=== PATIENT | male | born 1960 | race Caucasian/White ===

== ENCOUNTER 2023-10-25 17:49 | Emergency (ER) | payer OTHER, SELFPAY ==
--- NOTE | ~2023-10-25 | XR_ITS ---
XR foot RT min 3V 10/25/2023 18:36 Indication: Right foot pain Procedure: 4 views right foot Comparison: No prior studies for comparison. Findings: No fracture, subluxation or dislocation. Lisfranc joint intact. No foreign bodies. No erosi ve changes. Mild osteoarthritis of the first MTP joint. There are small degenerative calcaneal enthes ophytes. 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 Reviewed, dictated and finalized at location A. 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
[2023-10-25 17:57] VITALS: BP 130/69; PULSE 92; RESP 16; TEMP 36.8; O2SAT 98
--- NOTE | 2023-10-25 18:23 | ED.GENADULT ---
HPI - General Adult General Chief complaint: Extremity Injury, Lower Stated complaint: Right foot injury Time Seen by Provider: 10/25/23 18:23 Source: patient, RN notes reviewed and old records reviewed Mode of arrival: ambulatory Limitations: no limitations History of Present Illness HPI narrative: 63 year male to [facility] Care with complaint of right foot pain for 2 days. Patient denies any known injury. Patient endorses that he is on his feet all day for work. Patient states that he wore 2 socks today to work and that the pressure helped alleviate pain. Patient has not taken any [id number] medications in attempt to treat discomfort. Patient denies history of injury to foot. Patient denies numbness, tingling. Related Data Home Medications Medication Instructions Recorded Confirmed No Home Medications 10/25/23 10/25/23 Allergies Allergy/AdvReac Type Severity Reaction Status Date / Time No Known Allergies Allergy Verified 10/25/23 18:05 Review of Systems Review of Systems: All systems reviewed & are unremarkable except as noted in HPI and below Constitutional: Constitutional: Reports no additional constitutional complaints Eyes: Eyes: Reports no additional eye complaints ENT: Reports system reviewed and no additional complaints, except as documented Cardiovascular: Cardiovascular: Reports no additional cardiovascular complaints, Denies chest pain and Denies dyspnea Respiratory: Respiratory: Reports no additional respiratory complaints, Denies cough and Denies dyspnea Musculoskeletal: Musculoskeletal: Reports arthralgias ( Foot right) Neurologic: Reports system reviewed and no additional complaints, except as documented Psychiatric: Psychiatric: Reports no additional psychiatric complaints PMFSH Comments At the time of my signature, I reviewed and agree with the nursing past medical, surgical, social, and family history. There is no relevant family history pertinent to the patient complaint. Exam Const: General: cooperative, healthy appearing, comfortable, no acute distress, alert and well nourished Nutritional Appearance: well nourished Orientation/consciousness: patient oriented x3 Limitations: no limitations HENMT: Head: normal to inspection Ears: external ears normal Face/Nose/Sinus: Normal external nose present, Normal nares present, normal facial exam, No erythema and No edema Face and sinus: normal facial exam, no erythema and no edema Mouth: Yes Normal oral and palatal mucosa present Eyes: General: appearance normal, both eyes and all related structures Neck: Neck: normal visual inspection, full ROM and no meningeal signs Lymphatic: no lymphadenopathy noted and no lymphedema noted Chest: Chest palpation & inspection: normal inspection of the chest Resp: Effort & Inspection: normal respiratory effort and able to speak in complete sentences Auscultation: clear to auscultation bilaterally Cardio: Jugular venous distension: no JVD Rate: regular rate Rhythm: regular rhythm Back/Spine/Pelvis: Cervical Spine: cervical ROM normal Skin: General skin exam: normal color, no rashes or lesions noted and turgor normal Neuro: General: patient oriented x3, gait normal, moves all extremities and no meningeal signs Speech: normal speech Gait exam (Neuro): Normal gait present Extrem: General: normal to inspection, full ROM and capillary refill normal Right lower extremity: foot Details: normal capillary refill, normal to inspection and tenderness Location: of the dorsal foot and of the great toe Location: at the MTP joint Psych: Appearance: grossly normal and well kempt Course Course Emergency Course: Some parts of this dictation were generated by voice recognition software and may contain typographical and/or grammatical inaccuracies. Level of Care: Express Care Visit Vital Signs Vital signs: Vital Signs Temperature 36.8 C 10/25/23 17:57 Pulse Rate 92 10/25/23 17:57
== END 2023-10-25 19:10 | disposition home or self-care (01) ==
PROVIDERS: Emergency Provider Nurse Practitioner Family; PCP Internal Medicine
DX: M19.071 Primary osteoarthritis, right ankle and foot (principal)
CPT/HCPCS: 73630; 99213; G0463

== ENCOUNTER 2024-07-05 13:18 | Emergency (ER) | payer MEDICAID, SELFPAY ==
[2024-07-05 13:51] VITALS: BP 148/83; PULSE 96; RESP 18; TEMP 38.1; O2SAT 98
--- NOTE | 2024-07-05 14:31 | ED.URI ---
HPI - URI/Sore Throat General Chief Complaint: Upper Respiratory Infection Stated Complaint: cold/sob/hurts to take deep breath Time Seen by Provider: 07/05/24 14:32 Source: patient, RN notes reviewed and old records reviewed Mode of arrival: ambulatory Limitations: no limitations History of Present Illness HPI Narrative: 64-year-old male presents to the [facility] with complaints of body aches, sore throat, shortness of breath with exertion and feeling feverish. Onset (ago): day(s) Treatments prior to arrival: cold medicine Related Data Allergies Allergy/AdvReac Type Severity Reaction Status Date / Time Penicillins Allergy RASH Verified 07/05/24 14:03 Review of Systems Review of Systems: All systems reviewed & are unremarkable except as noted in HPI and below Constitutional: Constitutional: Reports no additional constitutional complaints ENT: Reports system reviewed and no additional complaints, except as documented Cardiovascular: Cardiovascular: Reports no additional cardiovascular complaints, Denies chest pain and Denies dyspnea Respiratory: Respiratory: Reports no additional respiratory complaints, Denies chest congestion, Denies cough and Denies dyspnea Musculoskeletal: Musculoskeletal: Reports no additional musculoskeletal complaints Integumentary/Breasts: Skin/Breast: Reports system reviewed and no additional complaints, except as docu PMFSH Comments At the time of my signature, I reviewed and agree with the nursing past medical, surgical, social, and family history. There is no relevant family history pertinent to the patient complaint. Exam Const: General: cooperative, no acute distress, well developed, alert, tired appearing, uncomfortable and well nourished Nutritional Appearance: well nourished Orientation/consciousness: patient oriented x3 Limitations: no limitations HENMT: Head: normal to inspection Ears: hearing grossly normal bilaterally, external ears normal, TM's normal bilaterally, EAC's normal, mastoids normal and no periauricular adenopathy Face/Nose/Sinus: normal facial exam and face symmetric Face and sinus: normal facial exam and face symmetric Mouth: Yes Normal oral and palatal mucosa present, Yes lip normal, Yes tongue normal and Yes moist mucous membranes Throat: posterior oropharynx normal, uvula midline, postnasal drainage and no uvular edema Eyes: General: appearance normal, both eyes and all related structures Neck: Neck: normal visual inspection, full ROM, no lymphadenopathy and no meningeal signs Chest: Chest palpation & inspection: normal inspection of the chest Resp: Effort & Inspection: normal respiratory effort and able to speak in complete sentences Auscultation: clear to auscultation bilaterally, no crackles, no rales, no rhonchi and no wheezes Cardio: Rate: regular rate Skin: General skin exam: normal color and no rashes or lesions noted Neuro: General: patient oriented x3, gait normal, moves all extremities and no meningeal signs Cognition (Neuro): normal cognition Speech: normal speech Gait exam (Neuro): Normal gait present Extrem: General: normal to inspection, full ROM, capillary refill normal and normal gait Psych: Appearance: grossly normal and well kempt Mental Status: mental status grossly normal Speech and movement: Normal speech and movement present and Clear speech present Affect: normal affect Attitude: cooperative Course Course Level of Care: Express Care Visit Vital Signs Vital signs: Vital Signs Temperature 100.6 F H 07/05/24 13:51 Pulse Rate 96 07/05/24 13:51 Respiratory Rate 18 07/05/24 13:51 Blood Pressure 148/83 H 07/05/24 13:51 Pulse Oximetry 98 07/05/24 13:51 Oxygen Delivery Room Air 07/05/24 13:51 Temperature 100.6 F H 07/05/24 13:51 Pulse Rate 96 07/05/24 13:51 Respiratory Rate 18 07/05/24 13:51 Blood Pressure 148/83 H 07/05/24 13:51 Pulse Oximetry 98 07/05/24 13:51 Oxygen Delivery Room Air 07/05/24 13:51 Reviewed MDM - URI/Sore Throat MDM Narrative Medical decision making narrative: Patient sitting in exam room. Nontoxic Patient positive for COVID, states that he has taken paxlovid in the past and would like it today Discharge instructions reviewed with patient, as well as provided in writing per nursing staff. The instructions also include specific and strict return/GO TO THE ER as well as f/u information. All questions have been answered, and the patient deny any further questions with discharge and discharge plan. Some parts of this dictation were generated by voice recognition software and may contain typographical and/or grammatical inaccuracies. Differential Diagnosis Differential diagnosis: Likely upper respiratory infection, otitis media, sinusitis, viral infection and influenza Lab Data Labs: Lab Results 07/05/24 Range/Units 14:32 POC Influenza A Ag Negative (Negative) POC Influenza B Ag Negative (Negative) POC SARS CoV-2 Ag Positive (Negative) Reviewed Critical Care Time Critical Care Time Critical Care Time: No Discharge Plan Discharge Clinical Impression: COVID-19 Patient Disposition: Home, Self-Care Condition: Stable Instructions: COVID-19 (Coronavirus Disease 2019) (ED), COVID-19: Slow the Coronavirus Spread (ED) Additional Instructions: Your rapid COVID test was positive Your rapid flu test was negative Your symptoms are due to a viral illness, COVID-19, which is not treated with antibiotics. Typically viral infections last 7-10 days, can linger for couple of weeks. It is very important to treat your symptoms. Drink plenty of water, Gatorade, Pedialyte, ice pops or Jell-O. -Alternate Tylenol and Motrin per package directions for fever or pain. You can alternate every 4 hours -Antihistamine medication such as Benadryl at night and Zyrtec/Claritin/Zoie during the day can help improve symptoms. -doing daily nasal irrigations can help relieve pressure your sinuses. Things like a Neti pot -Use Flonase twice a day for 5 days then daily to help reduce the inflammation and dry up your sinuses. -You can also use Mucinex. Be sure to drink plenty of water with this medication at least 8 ounces with every dose and it is important to drink 8 to 10 glasses of water per day. Water is a natural decongestant -Eat and drink things that are easy to swallow, like tea or soup, or popsicles. -Oral rinses such as: Salt water gargles and/or may use topical anesthetic (eg. Chloraseptic spray) or lozenges to relieve dryness or throat pain). -Frequent hand washing or hand wireline operator is one of the best ways to prevent spread of infection. -Using a vaporizer or humidifier at night will also help thin secretions and help with coughing up phlegm. -Follow up with primary care provider in 7-10 days if condition is not improving - For new or worsening symptoms go directly to the nearest ER Patient Language: Guatemalan Prescriptions: New Paxlovid 300 mg (150 mg x 2)-100 mg tablets,dose pack See Rx Instructions .ROUTE .COMPLEX Qty: 30 0RF Rx Instructions: take TWO 150 mg tablets of nirmatrelvir with ONE 100 mg tablet of ritonavir twice daily for 5 days Follow-up/Referrals: Eduardo,Alexander Childress MD [Primary Care Provider] - 1 Week [facility] Stand Alone Forms: Work/School Release IP Time of Disposition: 14:42
[2024-07-05 14:34] LABS: EDCOVIDSCREEN Positive (Negative); EDINFLUASCREEN Negative (Negative); EDINFLUBSCREEN Negative (Negative)
== END 2024-07-05 14:47 | disposition home or self-care (01) ==
PROVIDERS: Emergency Provider Nurse Practitioner; PCP Internal Medicine
DX: U07.1 COVID-19 (principal); M10.9 Gout, unspecified
CPT/HCPCS: 87426; 87804; 99213; G0463

== ENCOUNTER 2024-10-18 17:08 | Emergency (ER) | payer OTHER, BC, MEDICAID, SELFPAY ==
--- NOTE | ~2024-10-18 | XR_ITS ---
CHEST RADIOGRAPH, PA AND LATERAL CLINICAL HISTORY: shortness of breath . COMPARISON: None available TECHNIQUE: PA and lateral views of the chest. FINDINGS The cardiomediastinal silhouette is unremarkable. The lungs are clear. Visualized osseous structures and soft tissues are unremarkable. IMPRESSION: No focal infiltrate or effusion. Reviewed, dictated and finalized at location A.
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
--- NOTE | ~2024-10-18 | XR_ITS ---
HISTORY: PAIN IN LEFT HAND COMPARISON: None TECHNIQUE: 3 views of the left hand were performed. FINDINGS: No acute fracture is identified. The carpal arcs are intact. Mild radiocarpal joint space narrowing with sclerosis of the distal radius is present. Gullwing deformity is identified within the proximal and distal interphalangeal joint spaces of the s econd, third, fourth and fifth digits. Remaining joint spaces are unremarkable. Bone mineralization is age-appropriate. No significant soft tissue swelling. No radiopaque foreign body is identified. IMPRESSION: Degenerative disease, without acute fracture or dislocation within the left hand, as detailed above. Reviewed, dictated and finalized at location A. IMPRESSION: Degenerative disease, without acute fracture or dislocation within the left morris d, as detailed above.
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
--- OUTSIDE RECORDS SUMMARY | 2024-10-18 17:10 | XMS_ITS | Clinical Summary ---
Author Organization [facility] Address [address] [place] [address] Phone Care Team Providers Care [employer] Name Role Phone Alexander Clark MD Primary Care Provider Allergies Active Allergy Reactions Criticality Noted Date Comments Allopurinol Rash 12/26/2023 Fever, body aches, rash Penicillins Hives,Rash 08/14/2022 Medications indomethacin (INDOCIN) 25 MG Capsule Take 1 Capsule by mouth 3 times daily as needed for Mild or more severe pain. 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 12/10/2020 Type 2 diabetes mellitus wit hout complication, without long-term current use of insulin 11/30/2020 Colonoscopy refused 11/27/2020 Overview (11/27/2020): Family History Relation Name Status Comments Father Mother Social History Tobacco Use Types Packs/Day Years Used Date Smoking Tobacco: Never Passive Smoke Exposure: Never Smokeless Tobacco: Never Tobacco Cessation:Counseling Given: No Alcohol Use Standard Drinks/Week Comments No 0 (1 standard drink = 0.6 oz pur e alcohol) [facility] Utilities Answer Date Recorded In the past 12 months has e electric, gas, oil, or water company threatened to shut off services in your home? No 04/23/2024 Social Connection and Isolat ion Panel [NHANES] Answer Date Recorded In a typical week, how many times do you talk on the phone with family, friends, or neighbors? More than three times a week 04/23/2024 How often do you get togethe r with friends or relatives? Never 04/23/2024 How often do you attend chur ch or adventist services? Never 04/23/2024 Do you belong to any clubs o r organizations such as moravian groups, unions, fraternal or athletic groups, or school groups? No 04/23/2024 How often do you attend meet ings of the clubs or organizations you belong to? Never 04/23/2024 Marital Status Not on file 04/23/2024 AUDIT-C Answer Date Recorded Q1: How often do you have a drink containing alc ohol? Monthly or less 04/23/2024 Q2: How many drinks containi ng alcohol do you have on a typical day when you are drinking? 1 or 2 04/23/2024 Frequency of Binge Drinking Not on file 02/2024 Overall Financial Resource Strain (CARDIA) Answe r Date Recorded How hard is it for you to pa y for the very basics like food, housing, medical care, and heating? Somewhat hard 04/23/2024 PHQ-2 Answer Date Recorded Total Score - Questions 1-9 0 01/15 [facility] - Occupational Stress Questionnaire Answer Date Recorded Do you feel stress - tense, restless, nervous, or anxious, or unable to sleep at night because your mind is troubled all the time - these days? Not at all 04/23/2024 Exercise Vital Sign Answer Date Recorde d On average, how many days pe r week do you engage in moderate to strenuous exercise (like a brisk walk)? 6 days 04/23/2024 On average, how many minutes do you engage in exercise at this level? 30 min 04/23/2024 Hunger Vital Sign Answer Date Recorded Within the past 12 months, y ou worried that your food would run out before you got the money to buy more. Never true 04/23/20 24 Within the past 12 months, t he food you bought just didn't last and you didn't have money to get more. Never true 04/23/2024 PRAPARE - Transportation Answer Date Re corded In the past 12 months, has l ack of transportation kept you from medical appointments or from getting medications? No 02/2024 In the past 12 months, has l ack of transportation kept you from meetings, work, or from getting things needed for daily living? No 04/23/2024 Housing Stability Vital Sign Answer Chet e Recorded In the last 12 months, was t here a time when you were not able to pay the mortgage or rent on time? No 04/23/2024 In the past 12 months, how m any times have you moved where you were living? 0 04/23/2024 At any time in the past 12 m [facility], were you homeless or living in a fdc (including now)? No 04/23/2024 Sexually Active Control Partners Comments Yes Sex and Gender Information Value Date Recorded Sex Assigned at Not on file Legal Sex Male 8:43 PM CDT Gender Identity Not on file Sexual Orientation Not on file Last Filed Vital Signs Vital Sign Reading Time Taken Comments Blood Pressure 116/70 04/23/2024 9:48 AM CDT Pulse 104 04/23/2024 9:48 AM CDT Temperature 36.6 C (97.8 F) 04/23/2024 9:48 AM CDT Respiratory Rate 12 02/08/2024 4:10 PM CDT Oxygen Saturation 95% 04/23/2024 9:48 AM CDT Inhaled Oxygen Concentration - - Weight 89.8 kg (198 lb) 04/23/2024 9:48 AM CDT Height 188 cm (6' 2 ) 04/23/2024 9:48 AM CDT Body Mass Index 25.42 04/23/2024 9:48 AM CDT Plan of Treatment Health Maintenance Due Date Last Done Comments Diabetes: Eye Exam 1961 Hepatitis C Virus (HCV) Screening 1961 TdaP Immunization 1961 Pneumococcal Immunization (50+ years) (1 of 2 - PCV) 1980 Colonoscopy 2006 Cologuard 2011 Immunochemical Fecal Occult Blood 2011 Zoster Immunization (1 of 2) 2011 Influenza Immunization (#1) 2024 SARS-COV-2 Immunization ( season) 2024 04/22/2021, 04/01/2021 Diabetes: Hemoglobin A1c 07/09/202401/07/ 024, 04/10/2023, 08/30/2022, Additional history exists Diabetes: Nephropathy Screening 01/07/2025 01/08/2024, 08/15/2022, 05/10/2021, Additional history exists Diabetes: Foot Exam 02/07/2025 02/08/2024 Respiratory Syncytial Virus (RSV) Immunization (Adult) (1 - 1-dose 75+ series) 2036 PSA Discussion Completed 01/08/2024 Colorectal Cancer Screening Discontinued Hepatitis B Immunization Aged Out No longer eligible based on patient's age to complete this topic Meningococcal Immunization (ACWY) Aged Out No longer eligible based on patient's age to complete this topic Rotavirus Immunization Aged Out No lo nger eligible based on patient's age to complete this topic Procedures Procedure Name Priority Date/Time Associated Diagnosis Comments CMP (COMPREHENSIVE METABOLIC PANEL) Routine 01/08/2024 8:01 AM CDT Type 2 diabetes mellitus without complication, without long-term current use of insulin (HCC) Well adult exam Other fatigue HEMOGLOBIN A1C W/ ESTIMATED GLUCOSE Routine 01/08/2024 8:01 AM CDT Type 2 diabetes mellitus without complication, without long-term current use of insulin (HCC) Well adult exam Other fatigue PSA SCREEN Routine 01/08/2024 8:01 AM CDT Screening for malignant neoplasm of prostate from Last 3 Months or Most Recently Relevant to Health Maintenance Results * (ABNORMAL) HEMOGLOBIN A1C W/ ESTIMATED GLUCOSE (01/08/2024 8:01 AM CDT) HGB-A1C 6.8(H) 4.0 - 6.0 % 01/08/2024 3:38 PM CDT [facility] Est Average Glucose 148.5 mg/dL 01/08/2024 3:38 PM CDT [facility] Blood Venipuncture / Unknown 01/08/2024 8:01 AM CDT 01/08/2024 8:01 AM CDT Narrative [facility] - 01/08/2024 3:38 PM CDT HEMOGLOBIN A1C: DIABETIC PATIENTS: WELL-CONTROLLED: 6.2 - 7.0 INTERMEDIATE WELL-CONTROLLED: 7.0 - 9.0 POORLY-CONTROLLED: >9.0 Merlyn Stover Rohit PAC CHEMISTRY ORDERAB LES Final Result Performing Organization Address [facility] Co de Phone Number [facility] [address] [place] [address] * PSA SCREEN (01/08/2024 8:01 AM CDT) PSA SCREEN, TOTAL 2.85 <4.00 ng/mL 01/08/2024 3:59 PM CDT [facility] Blood Venipuncture / Unknown 01/08/2024 8:01 AM CDT 01/08/2024 8:01 AM CDT Narrative [facility] - 01/08/2024 3:59 PM CDT [employer] Total PSA assay is a Chemiluminescent Microparticle Immunoassay (CMIA) for the quantitative determination of total PSA (both free PSA and PSA complexed to [id number]) in human serum. Total PSA values obtained with different assay methods, including Unger PSA assays, cannot be used interchangeably. Merlyn Bee PAC CHEMISTRY ORDERAB LES Final Result Performing Organization Address [facility] Co de Phone Number [facility] [address] [place] [address] * (ABNORMAL) CMP (COMPREHENSIVE METABOLIC PANEL) (01/08/2024 8:01 AM CDT) SODIUM 139 136 - 145 mmol/L 01/08/2024 3:43 PM CDT [facility] POTASSIUM 4.1 3.5 - 5.1 mmol/L 01/08/2024 3:43 PM CDT [facility] CHLORIDE 106 98 - 107 mmol/L 01/08/2024 3:43 PM CDT [facility] CO2, VENOUS 21(L) 22 - 30 mmol/L 01/08/2024 3:43 PM CDT [facility] ANION GAP 16.1 <18.0 mmol/L 01/08/2024 3:43 PM CDT [facility] GLUCOSE 124(H) 70 - 99 mg/dL 01/08/2024 3:43 PM CDT [facility] BUN 13 8 - 26 mg/dL 01/08/2024 3:43 PM CDT [facility] CREATININE, BLOOD 1.10 0.70 - 1.30 mg/dL 01/08/2024 3:43 PM CDT [facility] BUN/CREATININE RATIO 12 12 - 20 ratio 01/08/2024 3:43 PM CDT [facility] TOTAL PROTEIN 7.5 6.3 - 8.2 g/dL 01/08/2024 3:43 PM CDT [facility] ALBUMIN 4.2 3.5 - 5.0 g/dL 01/08/2024 3:43 PM CDT [facility] A/G RATIO 1.3 1.0 - 2.2 01/08/2024 3:43 PM CDT [facility] CALCIUM 9.5 8.7 - 10.5 mg/dL 01/08/2024 3:43 PM CDT [facility] T BILI 0.7 0.2 - 1.2 mg/dL 01/08/2024 3:43 PM CDT [facility] SGOT (AST) 25 5 - 34 U/L 01/08/2024 3:43 PM CDT [facility] SGPT (ALT) 35 0 - 55 U/L 01/08/2024 3:43 PM CDT [facility] ALKALINE PHOSPHATASE 75 40 - 150 U/L 01/08/2024 3:43 PM CDT [facility] IS THE PATIENT REQUIRED TO BE FASTING? No 01/08/2024 3:43 PM CDT [facility] GFR, ESTIMATED >60 >=60 01/08/2024 3:43 PM CDT [facility] Comment: Creatinine Clearance is the preferred criteria for selecting drug dose adjustments in renally impaired patients. The GFR is provided as additional pertinent clinical information. GFR is reported in mL/min/1.73 sq m. Calculation based on the Chronic Kidney Disease Epidemiology Collaboration (CKD- EPI) equation refit without adjustment for race. GFR, EST. >60 >=60 024 3:43 PM CDT [facility] GFR, EST. NONAFRICAN >60 >=60 01/08/2024 3:43 PM CDT [facility] Blood Venipuncture / Unknown 01/08/2024 8:01 AM CDT 01/08/2024 8:01 AM CDT Merlyn Bee PAC CHEMISTRY ORDERAB LES Final Result [facility] [address] [place] [address] from Last 3 Months or Most Recently Relevant to Health Maintenance Insurance [place] [id number] Care Teams [employer] Relationship Specialty Start Date End Date Alexander Clark MD [address] [place] [address] PCP - General Internal Medicine 11/11/20
[2024-10-18 17:13] VITALS: BP 142/66; PULSE 83; RESP 16; TEMP 36.2; O2SAT 100
--- OUTSIDE RECORDS SUMMARY | 2024-10-18 17:49 | XMS_ITS | Clinical Summary ---
Author Organization [facility] Address [address] [place] [address] Phone Care Team Providers Care Cashiers Supervisor Name Role Phone Alexander Clark MD Primary [...] drink = 0.6 oz pur e alcohol) [facility] Utilities Answer Date Recorded In the past [...] often do you attend chur ch or rastafari services? Never 04/23/2024 Do you belong to any clubs o r organizations such as holiness groups, unions, fraternal or athletic groups, or [...] Total Score - Questions 1-9 0 01/15 [facility] of Occupat ional Health - Occupational Stress [...] any time in the past 12 m [facility], were you homeless or living in a alf (including now)? No 04/23/2024 Sexually Active Control [...] 6.0 % 01/08/2024 3:38 PM CDT [facility] Est Average Glucose 148.5 mg/dL 01/08/2024 3:38 PM CDT [facility] Blood Venipuncture / Unknown 01/08/2024 8:01 AM CDT 01/08/2024 8:01 AM CDT Narrative [facility] - 01/08/2024 3:38 PM CDT HEMOGLOBIN A1C: DIABETIC PATIENTS: WELL-CONTROLLED: 6.2 - 7.0 INTERMEDIATE WELL-CONTROLLED: 7.0 - 9.0 POORLY-CONTROLLED: >9.0 Merlyn Stover Rohit PAC CHEMISTRY ORDERAB LES Final Result Performing Organization Address [facility] Co de Phone Number [facility] [address] [place] [address] * PSA SCREEN (01/08/2024 8:01 AM CDT) PSA SCREEN, TOTAL 2.85 <4.00 ng/mL 01/08/2024 3:59 PM CDT [facility] Blood Venipuncture / Unknown 01/08/2024 8:01 AM CDT 01/08/2024 8:01 AM CDT Narrative [facility] - 01/08/2024 3:59 PM CDT [employer] Total PSA assay is a Chemiluminescent Microparticle Immunoassay (CMIA) for the quantitative determination of total PSA (both free PSA and PSA complexed to [id number]) in human serum. Total PSA values obtained with different assay methods, including Unger PSA assays, cannot be used interchangeably. Merlyn Bee PAC CHEMISTRY ORDERAB LES Final Result Performing Organization Address [facility] Co de Phone Number [facility] [address] [place] [address] * (ABNORMAL) CMP (COMPREHENSIVE METABOLIC PANEL) (01/08/2024 8:01 AM CDT) SODIUM 139 136 - 145 mmol/L 01/08/2024 3:43 PM CDT [facility] POTASSIUM 4.1 3.5 - 5.1 mmol/L 01/08/2024 3:43 PM CDT [facility] CHLORIDE 106 98 - 107 mmol/L 01/08/2024 3:43 PM CDT [facility] CO2, VENOUS 21(L) 22 - 30 mmol/L 01/08/2024 3:43 PM CDT [facility] ANION GAP 16.1 <18.0 mmol/L 01/08/2024 3:43 PM CDT [facility] GLUCOSE 124(H) 70 - 99 mg/dL 01/08/2024 3:43 PM CDT [facility] BUN 13 8 - 26 mg/dL 01/08/2024 3:43 PM CDT [facility] CREATININE, BLOOD 1.10 0.70 - 1.30 mg/dL 01/08/2024 3:43 PM CDT [facility] BUN/CREATININE RATIO 12 12 - 20 ratio 01/08/2024 3:43 PM CDT [facility] TOTAL PROTEIN 7.5 6.3 - 8.2 g/dL 01/08/2024 3:43 PM CDT [facility] ALBUMIN 4.2 3.5 - 5.0 g/dL 01/08/2024 3:43 PM CDT [facility] A/G RATIO 1.3 1.0 - 2.2 01/08/2024 3:43 PM CDT [facility] CALCIUM 9.5 8.7 - 10.5 mg/dL 01/08/2024 3:43 PM CDT [facility] T BILI 0.7 0.2 - 1.2 mg/dL 01/08/2024 3:43 PM CDT [facility] SGOT (AST) 25 5 - 34 U/L 01/08/2024 3:43 PM CDT [facility] SGPT (ALT) 35 0 - 55 U/L 01/08/2024 3:43 PM CDT [facility] ALKALINE PHOSPHATASE 75 40 - 150 U/L 01/08/2024 3:43 PM CDT [facility] IS THE PATIENT REQUIRED TO BE FASTING? No 01/08/2024 3:43 PM CDT [facility] GFR, ESTIMATED >60 >=60 01/08/2024 3:43 PM CDT [facility] Comment: Creatinine Clearance is the preferred criteria for selecting drug dose adjustments in renally impaired patients. The GFR is provided as additional pertinent clinical information. GFR is reported in mL/min/1.73 sq m. Calculation based on the Chronic Kidney Disease Epidemiology Collaboration (CKD- EPI) equation refit without adjustment for race. GFR, EST. >60 >=60 024 3:43 PM CDT [facility] GFR, EST. NONAFRICAN >60 >=60 01/08/2024 3:43 PM CDT [facility] Blood Venipuncture / Unknown 01/08/2024 8:01 AM CDT 01/08/2024 8:01 AM CDT Merlyn Bee PAC CHEMISTRY ORDERAB LES Final Result [facility] [address] [place] [address] from Last 3 Months or Most Recently Relevant to Health Maintenance Insurance [place] [id number] Care Teams Cashiers Supervisor Relationship Specialty Start Date End Date Alexander Clark MD [address] [place] [address] PCP - General Internal Medicine 11/11/20
[2024-10-18 17:52] VITALS: BP 136/77; RESP 18; O2SAT 95
--- NOTE | 2024-10-18 18:03 | PC.NURSE ---
pt to CT
[2024-10-18 19:08] LABS: Add Urine Microscopic? YES; Appearance Urine Clear (Clear); Bacteria Urine None Seen /hpf; Bilirubin Urine Negative (Negative); Blood Urine Negative (Negative); Color Urine Yellow (Yellow); Glucose Urine UA Negative (Negative); Ketones Urine Negative (Negative); Leukocyte Esterase Ur Negative LEU/UL (Negative); Nitrate Urine Negative (Negative); Non Pathogenic Casts 0-2; Protein Urine Trace mg/dL (Negative); RBC Urine 0-2 /hpf (0-2); Squamous Epithelial Cell Urine None Seen /hpf (Few); Urobilinogen Urine 0.2 mg/dL (<2.0); WBC Urine 0-5 /hpf (0-3); pH Urine 5.5 (5.0-9.0)
[2024-10-18 19:09] LABS: Basophils Percent Auto 0.5 % (0.2-1.2); Eosinophils Absolute Auto 0.1 K/mm3 (0-0.3); Eosinophils Percent Auto 0.6 % (0-4.4); Hematocrit 38.4 % (42.0-52.0); Hemoglobin 13.3 g/dL (14.0-18.0); Immature Granulocyte Absolute 0.03 K/mm3 (0.00-0.031); Immature Granulocyte Percent A 0.4 % (0-0.5); Lymphocytes Absolute Auto 1.67 K/mm3 (0.9-3.2); Lymphocytes Percent Auto 19.7 % (18.3-44.2); Mean Corpuscular HGB Conc 34.6 g/dl (32-36); Mean Corpuscular Hemoglobin 30.9 pg (26-34); Mean Corpuscular Volume 89.1 fl (80-100); Mean Platelet Volume 9.7 fl (7.4-10.4); Monocytes Absolute Auto 0.7 K/mm3 (0.1-0.6); Monocytes Percent Auto 7.8 % (2.6-8.5); Platelet Count Result 168 k/mm3 (150-375); Red Blood Count 4.31 M/mm3 (4.6-6.20); Red Cell Distribution Width 12.4 % (11.5-14.5); White Blood Count 8.5 K/mm3 (4.5-10.0)
[2024-10-18 19:19] LABS: Alanine Aminotransferase 30 U/L (6-50); Albumin Level 4.4 g/dL (3.5-5.1); Alkaline Phosphatase 88 U/L (38-126); Anion Gap 9 mmol/L (4-12); Aspartate Amino Transferase 29 U/L (17-59); Bilirubin,Total 1.4 mg/dL (0.2-1.3); Blood Urea Nitrogen 15 mg/dL (9-20); Calcium 9.1 mg/dL (8.4-10.2); Carbon Dioxide 27 mmol/L (22-30); Chloride 105 mmol/L (98-107); Estimated CRCL calculation 88 ml/min; Estimated Glomerular Filt Rate > 60; Glucose 134 mg/dL (65-110); Lipase 66 U/L (23-300); Potassium 3.8 mmol/L (3.4-5.0); Sodium 141 mmol/L (137-145)
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
== END 2024-10-18 20:50 | disposition home or self-care (01) ==
PROVIDERS: Emergency Provider Emergency Medicine; PCP Internal Medicine
DX: S39.012A Strain of muscle, fascia and tendon of lower back, initial encounter (principal); S63.619A Unspecified sprain of unspecified finger, initial encounter; V59.88XA Occupant (driver) (passenger) of pick-up truck or van injured in other specified transport accidents, initial encounter
CPT/HCPCS: 36415; 70450; 71046; 72128; 72131; 73130; 80053; 81001; 83690; 85025; 99284